=== PATIENT | female | born 1935 | race Caucasian/White ===

== ENCOUNTER 2024-01-10 20:12 | Observation (INO) | payer OTHER, SELFPAY ==
[2024-01-10 14:39] VITALS: BMI 28.6
[2024-01-10 14:43] VITALS: BP 183/83
[2024-01-10 15:19] LABS: % Basophils 0.6 % (0-2); % Eosinophils 2.1 % (0-6); % Immature Granulocytes 0.2 % (0-0.5); % Lymphocytes 30.6 % (20.5-51.1); % Monocytes 8.1 % (1.7-9.3); % Neutrophils 58.4 % (42.2-75.2); Absolute Eosinophils 0.1 10^3/uL (0-0.7); Absolute Lymphocytes 1.6 10^3/uL (1.2-3.4); Absolute Monocytes 0.4 10^3/uL (0.1-0.6); Hematocrit 42.2 % (37.0-47.0); Hemoglobin 14.8 g/dL (12.0-16.0); Mean Corp Hgb Conc. 35.1 g/dL (33.0-37.0); Mean Corpuscular Volume 88.3 fL (81.0-99.0); Mean Platelet Volume 9.8 fL (7.4-10.4); Nucleated Red Blood Cells % 0 %; Platelet Count 207 10^3/uL (130-400); Red Blood Cell Count 4.78 10^6/uL (4.20-5.40); Red Cell Dist. Width 13.1 % (11.5-14.5); White Blood Cell Count 5.2 10^3/uL (4.8-10.8)
[2024-01-10 15:28] LABS: ALT (SGPT) 15 U/L (0-35); AST (SGOT) 24 U/L (14-36); Albumin 4.5 g/dl (3.5-5.0); Alkaline Phosphatase 89 U/L (38-126); Blood Urea Nitrogen 20 mg/dl (7-17); Calcium 10.2 mg/dl (8.4-10.2); Carbon Dioxide 25 mmol/L (22-30); Chloride 105 mmol/L (98-107); Glucose 118 mg/dl (70-99); Potassium 4.3 mmol/L (3.5-5.1); Sodium 140 mmol/L (135-145); Total Bilirubin 1.1 mg/dl (0.2-1.3); Total Protein 7.4 g/dl (6.3-8.2); eGFR > 60.00
[2024-01-10 16:27] VITALS: BP 150/65
--- NOTE | 2024-01-10 18:33 | ED.CVA ---
History of Present Illness
General
Chief Complaint: CVA/TIA Symptoms
Source: patient and family (Daughter)
Exam Limitations: none
Time Seen by Provider: 01/10/24 16:26
Nursing documentation reviewed up to this point in time: agreed with
Onset of Stroke Symptoms
Onset of symptoms known: No
Time pt last seen normal is known: No
Travel History
Have you had any contact with someone who has COVID-19?: No
Do you have any symptoms of coronavirus? Fever > 100 degrees, chills, cough, shortness of breath, sore throat, loss of taste or smell, muscle aches, or headache?: No
History of Present Illness
History of Present Illness:
88-year-old female with a past medical history of hypertension, hyperlipidemia, CAD status post CABG who presents to the emergency room with her daughter for evaluation after visual disturbance and questionable loss of consciousness. Patient says
that this afternoon just prior to arrival she was a passenger in the car driving with her daughter. She says that all of a sudden she noticed 'flash' in the center of her vision. Her daughter says that she saw her mother have a twitch of her right
arm and saw her mother's head twitch backwards and mother did not respond to her name for a few seconds. Patient says that she think she may have passed out for seconds. She says she felt dazed for a few minutes and had this visual disturbance.
But there was no significant confusion per daughter. There was no weakness or numbness in extremities per patient. No facial droop noted by daughter. Daughter says the patient did not have any slurring of her speech or any point. Patient says
that she did not have any loss of vision. Patient says that she has never had an episode like this in the past, did not want to come to the hospital but daughter urged her to come in the patient was concerned potentially for TIA. Patient's only
complaint in the emergency room is a very mild headache. She denies any other complaints.
Review of Systems
Review of Systems
All Other Systems: ROS reviewed and negative except as documented in HPI and ROS
Constitutional: Denies fever or chills
EENT: Denies sore throat or runny nose
Respiratory: Denies cough or trouble breathing
Cardiac: Denies chest pain or palpitations
ABD/GI: Denies abdominal pain, nausea, vomiting or diarrhea
: Denies flank pain
Musculoskeletal: Denies neck pain or back pain
Neurological: Reports headache; Denies dizzy, weakness or numbness
Phy Exam
Physical Exam
Physical Exam:
General: Awake, alert, oriented x3; no acute distress
Head: Normocephalic, atraumatic
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
Throat: Airway intact, handling secretions
Neck: Trachea midline, supple without meningismus
Lungs: Clear to auscultation bilaterally, no wheezing, rales, rhonchi
Heart: Regular rate and rhythm, no murmurs, gallops, or rubs
Abd: Soft, non distended, nontender
Neuro: Cranial nerves intact 2 through 12, speech fluent without dysarthria or aphasia, no limb ataxia, motor and sensory function intact and symmetric upper and lower extremities
Skin: no rash
Extremities: No edema in extremities, equal pulses in all extremities
Scores
NIH Stroke Score
Level of Consciousness: 0 - Alert
LOC Questions: 0-Answers both correctly
LOC Commands: 0-Performs both correctly
Best Horizontal Gaze: 0-Normal
Visual [place]: 0=Normal, no visual loss
Facial Palsy: 0=Normal, symmetrical
Motor - Right Arm: 0=No drift 10 seconds
Motor - Left Arm: 0=No drift 10 seconds
Motor - Right Le-No drift 5 seconds
Motor - Left Le-No drift 5 seconds
Limb Ataxia: 0-Absent
Sensation: 0-Normal
Best Language: 0-No aphasia
Dysarthria: 0-Normal
Extinction and Inattention: 0-No abnormality
Total Score:: 0
Heart Failure Risk
Heart Failure Risk Score: Not Applicable
Heart Score for Chest Pain Patients
STEMI patient?: Not applicable
Withdrawal Assessment of Alcohol
Withdrawal Assessment Completed?: Not applicable
Course
Orders/Labs/Results
Orders:
Orders
01/10/24 14:48
Electrocardiogram (*1) Urgent
Reason for Study: Vertigo / Dizzy
EKG- Treatment ONCE
01/10/24 14:59
CMP [Comprehensive Metabolic Panel] Urgent
Complete Blood Count/With Diff Urgent
01/10/24 16:51
CT Head W/o Iv Contrast Urgent
Comment:
Reason For Exam: headache, syncope
Abnormal Lab Results
01/10/24
14:59
BUN 20 H mg/dl
(7-17)
Glucose 118 H mg/dl
(70-99)
01/10/24 14:59
01/10/24 14:59
Vital Signs
Initial and Last Documented VS:
Initial Vital Signs
Temp Pulse Resp BP Pulse Ox
36.6 C 71 16 183/83 98
01/10/24 14:43 01/10/24 14:43 01/10/24 14:43 01/10/24 14:43 01/10/24 14:43
Last Documented Vital Signs
Temp Pulse Resp BP Pulse Ox
36.6 C 63 13 150/65 98
01/10/24 14:43 01/10/24 17:28 01/10/24 17:28 01/10/24 16:27 01/10/24 17:28
MDM/Problems Addressed
Differential Diagnosis Includes:
Syncope with myoclonic jerk, seizure, TIA/amaurosis fugax, migraine
MDM/Problems Addressed:
88-year-old female presents for evaluation after transient visual disturbance and questionable syncopal episode/unresponsiveness, arm jerk. She has a mild headache here but symptoms seem to otherwise have resolved. Hypertensive but otherwise
normal vitals. Physical exam as above. Plan to place an IV check labs including a CBC and a CMP. Will check an EKG. Will check CT head. Will monitor closely reassess after the above.
Labs reviewed: CBC and CMP unremarkable. EKG shows sinus rhythm no concerning changes. CT head negative for any acute pathology. Patient remains mildly hypertensive but has otherwise normal vitals and has not had return of symptoms. Differential
would include seizure although would be unusual in an 88-year-old with no history of seizures; could have been syncope with myoclonic jerk although visual disturbance somewhat unusual. Somewhat lower suspicion for TIA as there was no focal weakness
or numbness only a transient visual disturbance and transient confusion/decreased responsiveness but she does have risk factors for TIA. Discussed case with neurology leaning more towards seizure based on description of events, will plan for
observation overnight likely MRI and EEG in the morning. Discussed with hospitalist for admission.
Chronic conditions affecting care:
Hypertension, hyperlipidemia, CAD
Acute Exacerbation and/or Progression of Chronic Illness:
Acutely hypertensive
Acute Exacerbation and/or Progression of Chronic Illness: HTN
*Radiology
Radiology exam reviewed: radiology read reviewed
*Pulse Oximetry
Patient hypoxic: no
*EKG
Interpreted by ED Provider?: Yes
Heart Rate: 64
Rate: normal
Rhythm: sinus
[place]: left axis deviation
Interval: normal interval
QRS Pattern: right bundle branch block
Ischemia: non-specific ST changes
*Critical Care Note
Total Time (30-74mins, 75-104mins- exclusive of procedures): Not Applicable
Data Reviewed
Review of Other/Old Records Reveals: Labs and Records
Source: patient and family (Daughter)
Patient Management
Discussion with other providers: Hospitalist (Discussed with hospitalist) and Video Game Tester (Discussed with neurology)
Escalation/DeEscalation of care consider admission/obs:
Admission indicated
ED Attending Note
-
Portions of this chart may have been created with voice recognition software.� Occasional wrong word or��sound alike� substitutions may have occurred due to the inherent limitations of voice recognition software.
Discharge Plan
Departure
Patient Disposition: Admit
Date of Disposition: 01/10/24
Time of Disposition: 18:52
Presentation/result/management discussed w/ accepting MD/DO: Hospitalist
Discharge Problem:
Visual disturbance, Unresponsive episode
Referrals:
UNKNOWN - PT DOES,NOT KNOW [Family Provider] -
Interventions
Interventions:
ED- Fall Risk Assessment Last Done: 01/10/24 16:28
*ED COVID-19 Vaccine History Last Done: 01/10/24 14:43
ED- Pulmonary Assessment Last Done: 01/10/24 16:28
ED- Neurological Assessment Last Done: 01/10/24 16:28
ED- Cardiac Assessment Last Done: 01/10/24 16:28
Discharge Date and Time
Print Language: [place]
--- NOTE | 2024-01-10 20:02 | HPS.HSE ---
Family Physician
-
Family Physician: NOT KNOW UNKNOWN - PT DOES
Chief Complaint
-
Vision change
History of Present Illness
Patient is an 88y F with PMH significant for ASCVD and hypertension who presents to ED complaining of an episode of vision change and mental status change this afternoon. Patient states that she was riding in the car with her daughter when she
suddenly noted an 'explosion' of bright light from between her eyes. The next thing she recalls is her daughter calling out to her. Her daughter states that the patient's head 'flew back' and her arm raised into the air. This was momentary and
patient does not recall those movements at all. She was reportedly not responsive to her daughter for a few moments. Once she responded, she was slightly sluggish.
Patient states that she had a minor frontal headache, mild blurred vision and felt 'slightly woozy'for several minutes following this episode. These symptoms have all since resolved completely.
Patient feels at her baseline at present.
Patient denies any prior history of similar symptoms.
No prior history of CVA / TIA.
Medical History
Past Medical History
Past Medical History: Reports Other
Additional Past Medical History:
ASCVD
Hypertension
Dysconjugate Gaze (since childhood)
Osteoarthritis
Past Surgical History: Reports Other
Additional Past Surgical History:
CABG x 3
T&A
Cholecystectomy
[facility]
Social History
Tobacco: Non-smoker
Alcohol: None
Drug: None
Family History
Family History: Other (Mother: TIA)
Allergies / Home Medications
Allergies reflects when Allergies were last updated in [facility].
Home Medications with original date entered in [facility]
Allergy/Medication List:
Allergies
Allergy/AdvReac Type Severity Reaction Status Date / Time
clavulanic acid Allergy Unknown Unknown Verified 01/10/24 14:42
[From Augmentin]
nitrofurantoin Allergy Unknown Unknown Verified 01/10/24 14:42
amoxicillin Allergy Unknown Verified 01/10/24 14:42
Home Medications
albuterol sulfate 90 mcg/actuation aerosol inhaler 2 puff inhalation R [id number] PRN sob/wheezing 01/10/24
amlodipine 5 mg tablet 5 mg PO DAILY 01/10/24
aspirin 81 mg tablet,delayed release 81 mg PO DAILY 01/10/24
atorvastatin 10 mg tablet 10 mg PO HS 01/10/24
cholecalciferol (vitamin D3) 125 mcg (5,000 unit) tablet (Vitamin D3) 125 mcg PO DAILY 01/10/24
coenzyme Q10 200 mg capsule (Co Q-10) 200 mg PO DAILY 01/10/24
cranberry 30,000 unit PO HS 01/10/24
cyanocobalamin (vitamin B-12) 1,000 mcg tablet (Vitamin B-12) 1,000 mcg PO DAILY 01/10/24
flaxseed oil 1,000 mg capsule 1,200 mg PO HS 01/10/24
losartan 50 mg tablet 50 mg PO BID 01/10/24
metoprolol succinate 25 mg tablet,extended release 24 hr 25 mg PO DAILY 01/10/24
omega-3 fatty acids-fish oil 684 mg-1,200 mg capsule,delayed release 1 cap PO HS 01/10/24
turmeric root extract 500 mg tablet 500 mg PO DAILY 01/10/24
vitamin A-vitamin C-vit E-min tablet 1 tab PO DAILY 01/10/24
Review of Systems
-
History Source: Patient
A 12 point ROS was completed and negative except as noted: Yes
Constitutional: Denies Fever, Fatigue or Chills
EENT: Denies Sore Throat or Runny Nose
Respiratory: Denies Cough or Trouble Breathing
Cardiac: Denies Chest Pain or Palpitations
Abdomen/GI: Denies Abdominal Pain, Nausea, Vomiting or Diarrhea
: Denies Dysuria or Frequency
Musculoskeletal: Denies Joint Pain or Edema
Neurological: Denies Dizzy, Headache, Weakness or Numbness
Psych: Denies Depression or Anxiety
Physical Exam
Vital Signs
Vital Signs
Temp Pulse Resp BP Pulse Ox
97.8 F 65 14 150/65 98
01/10/24 14:43 01/10/24 19:04 01/10/24 19:04 01/10/24 16:27 01/10/24 19:04
Physical Exam
General: Other (88y F in no acute distress.)
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
Respiratory: Clear; No Wheezes, Rales or Rhonchi
Cardiac: S1/S2 and Regular Rhythm; No Murmur
GI: Soft, Non Tender, Non Distended and Normal Bowel Sounds
Musculoskeletal: No Clubbing, No Cyanosis and No Edema
Neuro: AO x 3 and Nonfocal/grossly intact
Laboratory Results
-
01/10/24 14:59
01/10/24 14:59
Laboratory Results
Total Bilirubin 1.1 mg/dl (0.2-1.3) 01/10/24 14:59
AST 24 U/L (14-36) 01/10/24 14:59
ALT 15 U/L (0-35) 01/10/24 14:59
Alkaline Phosphatase 89 U/L (38-126) 01/10/24 14:59
Impression/Plan
-
A/P: Patient is an 88y F with PMH significant for ASCVD, hypertension and lifelong dysconjugate gaze who presents to ED complaining of an episode of visual disturbance and apparent unresponsiveness.
Vision Change
Movement Disorder
Unresponsive Episode
- Observe overnight for further evaluation and treatment.
- ? etiology of this brief episode: TIA v seizure v other.
- No prior history of similar.
- Initial CT head is unremarkable.
- Check MR Brain in AM. EEG.
- Neurology eval for additional recommendations.
- Follow for any recurrent symptoms.
- Continue usual ASA, statin, etc.
ASCVD
- History of CABG x 3 (5 years ago).
- No prior CVA / TIA / etc.
- Continue current CV med regimen.
Benign Hypertension
- Stable. BP elevated on initial arrival - improved without intervention.
- Continue outpatient BP med regimen with holding parameters.
DVT Prophylaxis: SCDs
Code Status: Full
[2024-01-10 20:12] VITALS: BMI 28.6
[2024-01-10] MEDS: COZAAR 50 MG PO (22:34)
[2024-01-10] MEDS: LIPITOR 10 MG PO (22:34)
[2024-01-10 22:36] VITALS: BP 164/69
[2024-01-11 06:55] LABS: Blood Urea Nitrogen 20 mg/dl (7-17); Calcium 9.9 mg/dl (8.4-10.2); Carbon Dioxide 24 mmol/L (22-30); Chloride 105 mmol/L (98-107); Estimated Creatinine Clearance 38 ml/min; Glucose 87 mg/dl (70-99); HDL Cholesterol 47 mg/dl; LDL Cholesterol, Calculated 63 mg/dl; Potassium 4.3 mmol/L (3.5-5.1); Sodium 140 mmol/L (135-145); Total Cholesterol 136 mg/dl (50-199); Triglyceride 131 mg/dl (10-149); Very Low Density Lipoprotein 26 mg/dl (0-30); eGFR 54.53
[2024-01-11 07:14] VITALS: BP 154/62
[2024-01-11 07:40] LABS: Hematocrit 38.5 % (37.0-47.0); Hemoglobin 13.4 g/dL (12.0-16.0); Mean Corp Hgb Conc. 34.8 g/dL (33.0-37.0); Mean Corpuscular Hgb 30.9 pg (27.0-31.0); Mean Corpuscular Volume 88.9 fL (81.0-99.0); Platelet Count 183 10^3/uL (130-400); Red Blood Cell Count 4.33 10^6/uL (4.20-5.40); Red Cell Dist. Width 13.1 % (11.5-14.5); White Blood Cell Count 4.6 10^3/uL (4.8-10.8)
[2024-01-11 08:00] VITALS: BP 148/60
--- NOTE | 2024-01-11 08:17 | CON.NEURO4 ---
Addendum entered and electronically signed by Cornell Montiel MD 01/11/24 15:54:
MRI/MRA with asymptomatic saccular aneurysm and asymptomatic left MCA stenosis.
No structural abnormality on the brain in the parenchyma, no masses no strokes.
Assessment is that this was most likely a seizure. MRI and EEG do not indicate very high likelihood of further seizures, reasonable to monitor off antiseizure medication but if a 2nd similar episode occurs then longterm seizure medication is
warranted.
Addendum entered and electronically signed by Cornell Montiel MD 01/11/24 12:24:
I saw and evaluated the patient I reviewed the note by Cami Ovalle agree with the findings the following comments:
88-year-old right-handed woman with a past ministry of coronary artery disease hypertension who presents to the hospital with abnormal behavior which occurred while in the passenger seat riding with her car yesterday afternoon. She has been feeling
very fine that day and it seemed that she suddenly had a unusual colorful fireworks display in her vision bilaterally and then does think that she briefly lost consciousness. Her daughter agrees that it did seem that she lost consciousness and was
briefly unresponsive for perhaps less than 30 seconds as she did not respond to her name being called several times. During this unresponsiveness times it did seem that the patient had a flailing of one of her arms but was not certain which side as
well as a extension of the neck backward, eyes were open there was not any overt loss of urinary or bowel function and she quickly returned back to normal. Patient had not had any similar episodes previously this has not had any history of seizure
ever in her life no family history of seizure no history of DIE MACHINE OPERATOR infection meningitis encephalitis or significant concussion or head injury in the past. 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 No history of
TIA or stroke she does report aspirin daily for history of coronary artery disease and CABG. Had a vasovagal syncope after drinking ice water and blowing her nose.
Neurologic examination shows baseline disconjugate gaze otherwise unremarkable
CT head noncontrast unremarkable
EEG normal no epileptiform features
Assessment: This sounds most likely to fit a focal seizure with impairment of awareness, would be very atypical for a TIA, and patient did not have any triggers for vasovagal syncope event.
This with the patient that in the event that this was a seizure that so far we do not have indicators that she is highly likely to have seizure again, discussed the reasoning behind whether or not to choose medications and she reports that unless
the evidence points towards a high risk for seizure recurrence that she would rather not pursue medication which is reasonable if this is what her workup indicates.
Recommendations
-Continue aspirin 81 mg daily
-Check MRI of the brain and MRA of the head and neck
Provided there are no structural lesions that would reasonably lead to an increased risk of further events then I do not feel that the patient would need to be started on chronic antiseizure medication at this time, did discuss with her that if she
were to have an identical event recur this would most likely necessitate chronic long-term antiseizure medication. Discussed with her my recommendation for stopping driving for the present time.. She is a resident of [facility].
Original Note:
Documented by User: Cami Pat NP 01/11/24 11:23
Consultation - Neurology 4
-
CONSULTING PHYSICIAN: Alexander Montiel MD
REFERRING PHYSICIAN: ER/Dr. Sheffield
DICTATED BY: BENNIE Bone
DATE/TIME OF REQUEST: 01/10/24
DATE/TIME OF CONSULTATION: 01/11/24
Reason for Consultation: Visual disturbance, altered mental status
History of Present Illness:
This is an 88-year-old right-handed female who has presented to the hospital with report of vision change and transient loss of consciousness. Patient reports feeling at her baseline yesterday morning (01/11/24). Yesterday afternoon she was riding
in the car with her daughter for 15 minutes when suddenly a silver 'fireworks display' appeared in bilateral vision, like it was 'going off inside her head.' She reports losing consciousness following the vision change. Her daughter reports that one
of her arms (can't remember which one) went up in the air and her head flexed backward. Her eyes were open and she was starring straight ahead. She said the patient's name several times with no response, but a few seconds later the patient 'came to'
and responded again. She denies any confusion or agitation following the event. There was no tongue biting or bowel/bladder incontinence. Following the event she reports having a mild frontal headache and a light-headed sensation with ambulation,
this resolved last evening. CT head was obtained on arrival to the ER and was negative for any acute abnormalities. She is taking aspirin 81mg daily for cardiac purposes. Currently, she reports feeling 100% at her baseline. She denies any headache,
vision changes, speech/swallow difficulty, dizziness, nausea, weakness, chest pain, palpitations, and shortness of breath. She endorses intermittent numbness in bilateral hands for about the past month which she attributes to using her tablet to
play games. She has had a disconjugate gaze since age 9. She denies any history of head/neck trauma, seizure, starring episodes, TIA, or stroke in the past. She reports having two ocular migraines in the past in which she saw zig zag lines in her
vision but never developed a headache. Yesterday's visual disturbance was not similar to her ocular migraines. She also reports having vasovagal syncope once about 5 years ago following a CABG surgery. She was drinking ice water and blew her nose,
and the next thing she knew she woke up on the floor. There was no tongue biting or incontinence with that event. Patient lives in [place] and is here visiting her daughter.
Past Medical History: HTN, HLD, CAD, osteoarthritis, disconjugate gaze since age 9, frequent UTIs, carotid stenosis
Surgical History: CABG x3, cholecystectomy, [facility], T&A
Family History: No family history of seizure. Mother- TIA.
Social History: Denies tobacco, alcohol, and illicit drug use. Significant second hand smoke exposure.
Allergies: Augmentin, amoxicillin, nitrofurantoin.
Home Medications: See below.
Review of Symptoms:
Patient denies any fever, headache, chest pain, shortness of breath, GI or symptoms.
�Per the HPI.�All systems are reviewed negative except above.
Physical Exam:
The patient is afebrile, abdomen is nondistended, breathing is unlabored, skin is warm and dry, no edema.
NIH Stroke Scale:
I performed the NIH stroke scale on the patient on 01/21/24 at 0900. The patient scored 0 points on the NIH stroke scale assessment, which were assigned as follows: See below.
Neurologic Examination:
The patient is awake, alert and oriented x 3. She is able to follow commands and answer questions appropriately. There is no aphasia or dysarthria. On cranial nerve assessment, pupils are 3 mm bilateral, round and reactive to light and
accommodation. Visual crenshaw are full. Extraocular movements are intact. Gaze is dysconjugate. Facial sensations are intact and bilaterally symmetrical, there is no facial asymmetry. Hearing is intact bilaterally to normal conversation volume.
Tongue palate and uvula are midline. Sternocleidomastoid strengths are full bilaterally. Motor strengths are 5/5 bilateral upper and lower extremities on medical research Andreafski scale. There is no drift or involuntary movement noted. Deep tendon
reflexes are 2+ bilateral upper and 1+ bilateral lower extremities and Babinski is absent bilaterally. Sensations of temperature and vibration are mildly reduced in distal bilateral lower extremities. There was no extinction noted on double
simultaneous stimulation. Coordination is intact by finger to nose bilaterally.
Lab Results: See below.
Neuro Imaging:
1. CT Head 01/10/24: No CT evidence for acute intracranial hemorrhage or transcortical infarct. Mild white matter leukoaraiosis in both cerebral hemispheres.Moderate diffuse cerebellar volume loss. Moderate hyperostosis frontalis interna.
2. EEG 01/11/24: Unremarkable.
Differentials for the patient's presentation include:
1. Small stroke or TIA unlikely but possible.
2. Seizure possible.
3. Unlikely to be a vasovagal event since there was no precipitating stressor.
Patient has the following risk factors for their symptoms: HTN, HLD, age
She is not a candidate for TNK/IAT due to unclear diagnosis, NIHSS 0.
Recommendations:
-MRI brain noncontrast, MRA head/neck ordered/pending.
-Goal normotension.
-Continue aspirin 81mg daily.
-LDL is 63. Continue home atorvastatin 10mg daily.
-Goal normoglycemia, hbA1c is pending.
-Checking blood work for metabolic abnormalities, see orders.
-Neurological checks per unit guidelines.
-PT/OT evaluations.
-DVT prophylaxis.
-Will follow pending results. Patient should follow-up with Neurology at least once in about 4-6 weeks, may do this in [place] as she is going back home but did provide her with out office information.
Discussed patient care with: Dr. Montiel, the patient, patient's daughter
Vital Signs and Labs
-
Vital Signs and Labs:
Vital Signs
Temp Pulse Resp BP Pulse Ox
98.6 F 62 17 154/62 95
01/11/24 07:18 01/11/24 07:14 01/11/24 07:14 01/11/24 07:14 01/10/24 22:36
Lab Results
01/11/24 07:19
01/11/24 05:33
Sodium 140 mmol/L (135-145) 01/11/24 05:33
Potassium 4.3 mmol/L (3.5-5.1) 01/11/24 05:33
BUN 20 mg/dl (7-17) H 01/11/24 05:33
Glucose 87 mg/dl (70-99) 01/11/24 05:33
Calcium 9.9 mg/dl (8.4-10.2) 01/11/24 05:33
LDL Cholesterol, Calc 63 mg/dl 01/11/24 05:33
Medications
-
Active Medications
Generic Name Dose Route Start Last Admin
Trade Name Freq PRN Reason Stop Dose Admin
Acetaminophen 650 mg 01/10/24 22:09
Acetaminophen 325 Mg Tablet PO 02/07/24 22:08
Q4HPRN PRN
Mild Pain / Temp > 101
Albuterol 2 puff 01/10/24 22:09
Albuterol Hfa [90 Mcg/Dose] Inhaler INH
R Q4HPRN PRN
sob/wheezing
Protocol
Amlodipine Besylate 5 mg 01/11/24 08:00 01/11/24 08:33
Amlodipine 5 Mg Tablet PO 02/08/24 07:59 5 mg
DAILY UVALDO Administration
Aspirin 81 mg 01/11/24 08:00 01/11/24 08:33
Aspirin 81 Mg (Enteric Coated) Tablet PO 02/08/24 07:59 81 mg
DAILY UVALDO Administration
Atorvastatin Calcium 10 mg 01/10/24 22:09 01/10/24 22:34
Atorvastatin (Lipitor) 10 Mg Tablet PO 02/07/24 22:08 10 mg
HS UVALDO Administration
Losartan Potassium 50 mg 01/10/24 22:09 01/11/24 08:34
Losartan 50 Mg Tablet PO 02/07/24 22:08 50 mg
BID UVALDO Administration
Metoprolol Succinate 25 mg 01/11/24 08:00 01/11/24 08:33
Metoprolol 25 Mg Extended Release Tablet PO 02/08/24 07:59 25 mg
DAILY UVALDO Administration
Home Medications
�Medication �Instructions �Recorded
albuterol sulfate 90 mcg/actuation 2 puff inhalation R Q4HPRN PRN 01/10/24
aerosol inhaler sob/wheezing
amlodipine 5 mg tablet 5 mg PO DAILY 01/10/24
aspirin 81 mg tablet,delayed 81 mg PO DAILY 01/10/24
release
atorvastatin 10 mg tablet 10 mg PO HS 01/10/24
cholecalciferol (vitamin D3) 125 125 mcg PO DAILY 01/10/24
mcg (5,000 unit) tablet (Vitamin
D3)
coenzyme Q10 200 mg capsule (Co 200 mg PO DAILY 01/10/24
Q-10)
cranberry 30,000 unit PO HS 01/10/24
cyanocobalamin (vitamin B-12) 1,000 mcg PO DAILY 01/10/24
1,000 mcg tablet (Vitamin B-12)
flaxseed oil 1,000 mg capsule 1,200 mg PO HS 01/10/24
losartan 50 mg tablet 50 mg PO BID 01/10/24
metoprolol succinate 25 mg 25 mg PO DAILY 01/10/24
tablet,extended release 24 hr
omega-3 fatty acids-fish oil 684 1 cap PO HS 01/10/24
mg-1,200 mg capsule,delayed release
turmeric root extract 500 mg tablet 500 mg PO DAILY 01/10/24
vitamin A-vitamin C-vit E-min 1 tab PO DAILY 01/10/24
tablet
NIH Stroke Score
Subsequent NIH Scale
Date of Subsequent NIH Scale: 01/11/24
Time of Subsequent NIH Scale: 09:00
NIH Stroke Score
Level of Consciousness: 0 - Alert
LOC Questions: 0-Answers both correctly
LOC Commands: 0-Performs both correctly
Best Horizontal Gaze: 0-Normal
Visual Crenshaw: 0=Normal, no visual loss
Facial Palsy: 0=Normal, symmetrical
Motor - Right Arm: 0=No drift 10 seconds
Motor - Left Arm: 0=No drift 10 seconds
Motor - Right Le-No drift 5 seconds
Motor - Left Le-No drift 5 seconds
Limb Ataxia: 0-Absent
Sensation: 0-Normal
Best Language: 0-No aphasia
Dysarthria: 0-Normal
Extinction and Inattention: 0-No abnormality
Total Score:: 0
Modified James (mRS) Score
Modified James Scale (mRS): No symptoms
Score: 0

Documented by User: Cornell Montiel MD 01/11/24 12:19
NIH Stroke Score
NIH Stroke Score
Total Score:: 0
Modified James (mRS) Score
Score: 0
[2024-01-11] MEDS: NORVASC 5 MG PO (08:33)
[2024-01-11] MEDS: ASPIR LOW (ENTERIC COATED) 81 MG PO (08:33)
[2024-01-11] MEDS: TOPROL XL 25 MG PO (08:33)
[2024-01-11] MEDS: COZAAR 50 MG PO ×2 (08:34→21:08)
--- NOTE | 2024-01-11 08:43 | W.PN.HOSP.TC ---
Today's Communication/Plan
-
EEG & MRI
Assessment / Plan
Assessment / Plan
Physical Exam
General: Other (88y F in no acute distress.)
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
Respiratory: Clear; No Wheezes, Rales or Rhonchi
Cardiac: S1/S2 and Regular Rhythm.
GI: Soft, Non Tender, Non Distended and Normal Bowel Sounds
Musculoskeletal: No Clubbing, No Cyanosis and No Edema
Neuro: AO x 3 , she followed commands. No slurred speech. No trauma
Psych: No agitation
Patient is an 88y F with PMH significant for ASCVD, hypertension and lifelong dysconjugate gaze who presented to ED complaining of an episode of visual disturbance and apparent unresponsiveness.
#suspect seizure. Patient presented with vision Change, involuntary movement Disorder, Unresponsive Episode
-
No recurrent episodes overnight.
- No prior history of similar.
- Initial CT head is unremarkable.
- Check MR Brain in AM. EEG.
- No signs of acute infection. She is not toxic- Follow for any recurrent symptoms.
- Continue usual ASA, statin.
Appreciate neurology input
ASCVD
- History of CABG x 3 (5 years ago).
- No prior CVA / TIA / etc.
- Continue current CV med regimen.
Benign Hypertension
- Blood pressure this morning 154/62
-Hypertensive urgency, BP elevated on initial arrival likely due to stress- improved without intervention.
- Continue outpatient BP med regimen with holding parameters.
DVT Prophylaxis: SCDs
Code Status: Full
Order PT/OT
�Total time spent to see patient, examine the patient on the floor, review data and lab results, discuss treatment plan with patient, daughter, nursing staff around 55 minutes
Anticipated Discharge: 24 - 48 hours
Subjective/Interval History
-
Date of Service: January 11, 2024
He is feeling well. No headache. No numbness. No seizures. Mentation is clear
Objective Data
-
Labs:
Laboratory Results
01/11/24 01/11/24
05:33 07:19
WBC Cancelled 4.6 L
Hgb Cancelled 13.4
Hct Cancelled 38.5
Plt Count Cancelled 183
Sodium 140
Potassium 4.3
Chloride 105
Carbon Dioxide 24
BUN 20 H
Creatinine 1.0
Glucose 87
Calcium 9.9
Vital Signs:
Vital Signs
Temp Pulse Resp BP Pulse Ox
98.6 F 62 17 154/62 95
01/11/24 07:18 01/11/24 07:14 01/11/24 07:14 01/11/24 07:14 01/10/24 22:36
--- NOTE | 2024-01-11 10:24 | EEG.RPT ---
Electroencephalogram Report
Recording
Date of EE01/11/24
Type of EEG: Routine
Length of EEG recordin minutes
Done with Video Recording: Yes
Patient Status: Inpatient
Recording Conditions: Awake and Drowsy
Hyperventilation Performed: No
Photic Stimulation Performed: Yes
Report
LESS THAN 1 HOUR EEG REPORT
LESS THAN 1 HOUR EEG INTERPRETATION:
Likely unremarkable EEG for age
CLINICAL CORRELATION:
Although normative values not been established for a person of this advanced age, the patient�s symmetry of the background suggests that this study was unremarkable.
A normal EEG does not rule out a diagnosis of epilepsy.� If clinical suspicion for seizure persists, a prolonged recording may be warranted.
Clinical correlation is advised.
METHODS:
A 21 channel digitized electroencephalogram (EEG) was performed using the 10/20 international system of electrode placement and one-lead of ECG recorded. The INTERNET BUSINESS TRADER quantitative review system was utilized. Duration 27 minutes.
ELECTROENCEPHALOGRAPHER IMPRESSION(S):
Quality of study
Good
Background
There was an unremarkable anterior-posterior voltage gradient of alpha frequency.
With eye opening the background activity changed to a low voltage mixture of frequencies.
There were no significant asymmetries of background activity noted.
Sleep
Drowsiness present
Photic Stimulation
No driving or activation
ECG
Normal sinus rhythm
[2024-01-11 11:07] VITALS: BP 136/44
[2024-01-11 11:27] VITALS: BP 136/44; PULSE 55; PULSE 67; PULSE 84; O2SAT 94
[2024-01-11 11:58] LABS: Glycohemoglobin (HgbA1c) 5.8 % (4.0-5.6)
[2024-01-11 12:20] LABS: TSH Reflex To Free T4 2.28 uIU/ml (0.47-4.68)
[2024-01-11 12:24] LABS: Ferritin 71.7 ng/ml (11.1-264.0)
[2024-01-11 12:56] LABS: Vitamin B12 984 pg/ml (239-931)
[2024-01-11 21:08] VITALS: BP 153/60
[2024-01-11] MEDS: LIPITOR 10 MG PO (21:08)
[2024-01-11 22:04] VITALS: BMI 28.3
--- NOTE | 2024-01-11 22:10 | PTCARENOTE ---
Patient arrived from ED via stretcher to 317-1, upon arrival patient requested to use bathroom. Alert and oriented, patient ambulated from stretcher to bathroom with standby assist, no weakness or unsteadiness present. Once back to bed, patient
oriented x3, no complaints of pain, NIH 0. Patient states 'I was seen by the neurologist in the ED and he said I could go home, but Dr. Pak wouldn't discharge me.' No deficits present. Patient states she was told by MD that they think she had
seizure activity. Call fowler within reach, patient demonstrates understanding on use of call fowler. Will continue to monitor.
[2024-01-11 23:00] VITALS: BP 157/61
[2024-01-12 00:37] LABS: Urine Albumin Negative (Neg - Trace); Urine Bilirubin Negative (Negative); Urine Character Clear (Clear); Urine Color Yellow; Urine Glucose Negative (Negative); Urine Ketone Negative (Negative); Urine Leukocyte Trace (Negative); Urine Nitrite Positive (Negative); Urine Occult Blood Negative (Negative); Urine Urobilinogen Negative (Neg - 1+)
[2024-01-12 01:54] LABS: Urine Bacteria Moderate (Negative); Urine Red Blood Cell 0-2 /HPF (0-2); Urine Squamous Cell >30 /LPF (Few); Urine White Cell 21-25 /HPF (0-5)
[2024-01-12 03:35] VITALS: BP 126/48
[2024-01-12 05:04] VITALS: BMI 27.8
[2024-01-12 07:00] VITALS: BP 136/54
[2024-01-12] MEDS: ASPIR LOW (ENTERIC COATED) 81 MG PO (08:47)
[2024-01-12] MEDS: NORVASC 5 MG PO (08:47)
[2024-01-12] MEDS: TOPROL XL 25 MG PO (08:47)
[2024-01-12] MEDS: COZAAR 50 MG PO (08:48)
--- NOTE | 2024-01-12 10:27 | W.DCSUMMARY ---
Discharge Summary
Discharge Data
Date of Admission: 01/10/24
Date of Discharge: 01/12/24
-
Pending Results: No
Hospital Course
88 years old female with history of hypertension and coronary disease who presented to the hospital with transient loss of consciousness with vision changes. Initial scan of the head showed no evidence of acute intracranial findings with mild
white matter leukoaraiosis in both cerebral hemispheres, moderate diffuse cerebellar volume loss, moderate hyperostosis frontalis interna. EKG was normal sinus rhythm. Her blood pressure was elevated upon arrival but improved without intervention.
She was taking daily aspirin at home. She did not have metabolic abnormalities on blood work. She did not have fever or leukocytosis. Neurology was consulted. Patient underwent magnetic resonance imaging studies of the brain that did not show
acute stroke. She had electroencephalogram that did not show epileptiform waves. She did not have recurrent episodes. She did not have cardiac arrhythmias on heart monitor. No neurological deficits on exam. Physical evaluation did not show
needs. Neurology recommended to monitor off antiseizure medication but might consider starting antiepileptics medications if second episode would occur. Could rule out transient ischemic attack. Patient was advised to take dual antiplatelet
therapy for 3 weeks as a prophylactic and then continue with aspirin. She did not have hemodynamic instability. She was advised not to drive for now. Patient reported she was going back to her home state of [place]. She was advised to see
neurologist there and follow-up with her primary care doctor. Patient was discharged in a stable condition.
Physical Exam
General: Other (88y F in no acute distress.)
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
Respiratory: Clear; No Wheezes, Rales or Rhonchi
Cardiac: S1/S2 and Regular Rhythm.
GI: Soft, Non Tender, Non Distended and Normal Bowel Sounds
Musculoskeletal: No Clubbing, No Cyanosis and No Edema
Neuro: AO x 3 , she followed commands. No slurred speech. No trauma
Psych: No agitation
Total discharge time spent to see patient, examine the patient on the floor, review data and lab results, discuss discharge plan with patient, nursing staff around 65 minutes
Discharge Plan
-
Patient Disposition: Home (Routine Discharge)
Discharge Diagnosis/Procedures: Possible focal seizure with impairment of awareness. Cannot rule out transient ischemic attack ( TIA).
Monitor off antiseizure medications for now. Electroencephalogram (EEG) no epileptiform features, imaging studies of the brain did not show acute stroke.
Continue prophylactic aspirin and Plavix for 3 weeks then continue with aspirin only for possible TIA.
Follow-up with neurology in [place]. See your primary care doctor within 1-2 weeks.
Your hemoglobin A1C was 5.8.
Diet: As tolerated
Driving Restrictions: No driving
Referrals:
UNKNOWN - PT DOES,NOT KNOW [Family Provider] -
Prescriptions:
New
clopidogrel [Plavix] 75 mg tablet
75 mg PO DAILY Qty: 21 0RF
Continued
losartan 50 mg tablet
50 mg PO BID
atorvastatin 10 mg tablet
10 mg PO HS
cyanocobalamin (vitamin B-12) [Vitamin B-12] 1,000 mcg Tablet
1,000 mcg PO DAILY
amlodipine 5 mg tablet
5 mg PO DAILY
aspirin 81 mg Tablet,Delayed Release (Dr/Ec)
81 mg PO DAILY
flaxseed oil 1,000 mg Capsule
1,200 mg PO HS
metoprolol succinate 25 mg tablet extended release 24 hr
25 mg PO DAILY
albuterol sulfate 90 mcg/actuation HFA aerosol inhaler
2 puff INHALATION R Q4HPRN PRN (Reason: sob/wheezing)
vitamin A-vitamin C-vit E-min Tablet
1 tab PO DAILY
coenzyme Q10 [Co Q-10] 200 mg Capsule
200 mg PO DAILY
omega-3 fatty acids-fish oil 684-1,200 mg Capsule,Delayed Release(Dr/Ec)
1 cap PO HS
cholecalciferol (vitamin D3) [Vitamin D3] 125 mcg (5,000 unit) Tablet
125 mcg PO DAILY
turmeric root extract 500 mg Tablet
500 mg PO DAILY
cranberry
30,000 unit PO HS
Discharge Orders:
Discharge Patient (As Directed); Ordered 01/12/24
Ordered By: Shelli Pak
Discharge Date and Time
Print Language: KINYARWANDA
--- NOTE | 2024-01-12 11:58 | CM ---
Met with pt and her daughter at bedside
Pt from [place] - was visiting family and came to for evaluation - Plan is to return home next week
Pt reports she lives in a 2 story home alone
She describes herself as independent, uses cane occasionally
DME - cane
SNF - denies in past
HH - has had VN in past after sx 5 years ago
Has ride at d/c
Given [facility]
Plan - home no needs
== END 2024-01-12 11:08 | disposition home or self-care (01) ==
LOC: 3 WEST ACU 20:12
PROVIDERS: Emergency Medicine; Registered Nurse Critical Care Medicine; ADMITTING PHYSICIAN Hospitalist; ATTENDING PHYSICIAN Internal Medicine; CONSULT PHYSICIAN Student in an Organized Health Care Education/Training Program; EMERGENCY PHYSICIAN Emergency Medicine
DX: R55 Syncope and collapse (principal); I16.0 Hypertensive urgency; H53.8 Other visual disturbances; E78.5 Hyperlipidemia, unspecified; I25.10 Atherosclerotic heart disease of native coronary artery without angina pectoris; M19.90 Unspecified osteoarthritis, unspecified site; I10 Essential (primary) hypertension; Z79.82 Long term (current) use of aspirin; Z79.899 Other long term (current) drug therapy; Z95.1 Presence of aortocoronary bypass graft
CPT/HCPCS: 70450; 70544; 70548; 70551; 80048; 80053; 80061; 81003; 81015; 82607; 82728; 82746; 83036; 84443; 85025; 85027; 87071; 87086; 87186; 93005; 95816; 97161; 99285; A9585; G0378